=== PATIENT | female | born 1995 | race Caucasian/White ===

== ENCOUNTER 2016-12-28 04:03 | Emergency (ER) | payer MEDICAID ==
[~2016-12-28] VITALS: Ht 170.2 cm; Wt 79.4 kg
[2016-12-28 04:05] VITALS: BP 123/132; PULSE 77; RESP 19; TEMP 97.7; O2SAT 98
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
--- NOTE | 2016-12-28 04:23 | NUR ---
ER MD Negron at bedside for evaluation
[2016-12-28] MEDS ORDERED: IBUPROFEN 800 MG TABLET PO ONE (05:15)
[2016-12-28 05:38] VITALS: BP 118/72; PULSE 74; RESP 16; TEMP 97.9; O2SAT 99
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
== END 2016-12-28 05:38 ==
LOC: SED 04:03
DX: Z02.89 Encounter for other administrative examinations (principal); S00.33XA Contusion of nose, initial encounter; F17.200 Nicotine dependence, unspecified, uncomplicated; Y04.0XXA Assault by unarmed brawl or fight, initial encounter; Y93.89 Activity, other specified; Y92.89 Other specified places as the place of occurrence of the external cause; Y99.8 Other external cause status
CPT/HCPCS: 99283